=== PATIENT | female | born 1935 | race Two or more races ===

== ENCOUNTER 2017-06-08 01:47 | Emergency (ER) | payer OTHER ==
[~2017-06-08] VITALS: Ht 165.1 cm; Wt 104.3 kg
--- NOTE | 2017-06-08 01:50 | NUR ---
TO BED 8 BIB [facility] C/O LOW BS, PER EMS FIELD BS 38 PT GIVEN D10 250MLS, RECHECK BS-209 BY EMS. PT AAOX4 NO ACUTE DISTRESS NOTED, RESP EVEN AND UNLABORED. PLACE PT ON CARDIAC MONITORING, CONTINUOUS POX. PENDING ER MD HOLLIDAY. PT FAMILY MEMBERS AT BEDSIDE. CALL LIGHT WITHIN REACH.
--- NOTE | 2017-06-08 02:03 | NUR ---
ER MD AT BEDSIDE TO EVAL PT WITH ORDERS RECEIVED. WILL CARRY OUT ORDERS.
--- NOTE | 2017-06-08 02:05 | NUR ---
BLOOD DRAWN AND SENT TO LAB.
[2017-06-08] MEDS ORDERED: IV D5W 1,000 ML IV ONE (02:13)
--- NOTE | 2017-06-08 02:22 | NUR ---
RN AT BEDSIDE TO MEDICATE PT.
[2017-06-08 02:29] LABS: BASOPHILS # (AUTO) 0.1 /CMM (0.0-0.2); BASOPHILS % (AUTO) 0.6 % (0.0-2.0); EOSINOPHILS # (AUTO) 0.1 /CMM (0.0-0.7); EOSINOPHILS % (AUTO) 1.1 % (0.0-6.0); HEMATOCRIT 34 % (33-45); HEMOGLOBIN 11.1 g/dL (11.5-14.8); LYMPHOCYTES # (AUTO) 1.8 /CMM (0.8-4.8); LYMPHOCYTES % (AUTO) 16.2 % (20.0-44.0); MEAN CORPUSCULAR HEMOGLOBIN 30 PG (26.0-33.0); MEAN CORPUSCULAR HGB CONC 32 g/dl (31.0-36.0); MEAN CORPUSCULAR VOLUME 92 fL (82-100); MONOCYTES # (AUTO) 0.7 /CMM (0.1-1.30); NEUTROPHILS # (AUTO) 8.4 /CMM (1.8-8.9); NEUTROPHILS % (AUTO) 76.1 % (43.0-81.0); PLATELET COUNT (AUTO) 188 /CMM (150-450); RDW COEFFICIENT OF VARIATION 16.6 (11.5-15.0); RED BLOOD CELL COUNT(AUTO) 3.73 MIL/uL (4.0-5.2)
[2017-06-08 02:40] LABS: CALCIUM, SERUM 9.1 mg/dL (8.5-10.1); CARBON DIOXIDE 30 mmol/L (21-32); CHLORIDE 96 mmol/L (98-107); CREATININE 0.8 mg/dL (0.6-1.3); GLUCOSE 130 mg/dL (74-106); POTASSIUM 4.2 mmol/L (3.5-5.1); SODIUM SERUM 132 mmol/L (136-145); UREA NITROGEN, BLOOD 16 mg/dL (7-18)
[2017-06-08 02:47] LABS: TROPONIN I < 0.017 ng/mL (0.00-0.056)
[2017-06-08 02:57] LABS: ALANINE AMINOTRANSFERASE 85 U/L (12-78); ALBUMIN 3.9 g/dL (3.4-5.0); ALKALINE PHOSPHATASE 70 U/L (46-116); ASPARTATE AMINOTRANSFERASE 65 U/L (15-37); B-TYPE NATRIURETIC PEPTIDE 104 PG/ML (0-125); BILIRUBIN,DIRECT 0.1 mg/dL (0.0-0.2); BILIRUBIN,TOTAL 0.5 mg/dL (0.2-1.0); TOTAL PROTEIN, SERUM 7.1 g/dL (6.4-8.2)
--- NOTE | 2017-06-08 03:04 | NUR ---
NOTED PT CARDIAC RHYTHM 2ND DEGREE MOBITZ TYPE II, ER MD SERRANO AWARE WITH ORDERS RECEIVED.
--- NOTE | 2017-06-08 03:08 | NUR ---
ER MD AT BEDSIDE TO RE-EVAL PT. PT ASYMPTOMATIC AT THIS TIME. PT AAOX4 NO ACUTE DISTRESS NOTED, RESP EVEN AND UNLABORED. PT FAMILY MEMBERS REMAINS AT BEDSIDE.
--- NOTE | 2017-06-08 03:09 | NUR ---
PT PLACED ON PACER PADS/MONITOR PER ER MD ORDER.
--- NOTE | 2017-06-08 03:31 | NUR ---
JENARO OSPINA TALKING TO [facility] MD NINA.
--- NOTE | 2017-06-08 04:04 | NUR ---
JENARO OSPINA TALKING TO DR. BERG REGARDING PT.
--- NOTE | 2017-06-08 04:07 | NUR ---
CALL FROM [facility]. PT ACCEPTED TO [facility] ER. DR KING. [facility] ETA [phone]
--- NOTE | 2017-06-08 04:24 | NUR ---
REPORT CALLED TO [facility]. [facility] AT BEDSIDE.
--- NOTE | 2017-06-08 04:30 | NUR ---
REPORT GIVEN TO [facility].
[2017-06-08 04:44] VITALS: BP 170/77
== END 2017-06-08 04:30 | disposition short-term general hospital (02) ==
LOC: ER 01:48
DX: I44.1 Atrioventricular block, second degree (principal); I10 Essential (primary) hypertension; E11.649 Type 2 diabetes mellitus with hypoglycemia without coma
CPT/HCPCS: 36415; 71010; 80048; 80076; 82962 ×2; 83036; 83605; 83880; 84443; 84484; 85025; 87081; 93005; 96360; 96361; 99285; A4606; J7070 ×2; Z7610